=== PATIENT | female | born 1970 | race Caucasian/White ===

== ENCOUNTER 2019-08-09 11:43 | Emergency (ER) | payer BC ==
--- NOTE | 2019-08-09 11:58 | EDM.PDOC ---
ED HPI GENERAL MEDICAL PROBLEM - General Chief Complaint: Trauma Stated Complaint: FALL Time Seen by Provider: 08/09/19 11:46 Source of Information: Reports: Patient, Family History Limitations: Reports: No Limitations - History of Present Illness INITIAL COMMENTS - FREE TEXT/NARRATIVE: The patient presents with a headache and left elbow pain after a fall. The patient was at [employer] and she slipped on the ice and fell and hit her head, hurt her left elbow and has pain to the left buttock. She did hit her head. She had no LOC. She went to her truck with her and she passed out for about 5 minutes. She did wet herself but there was no seizure activity. She thinks she passed out because of the pain from the left elbow. She has a slight headache. Her left elbow hurts. She has mild pain to the left buttock. She has no chest pain, shortness of breath, abdominal pain, nausea or vomiting. Onset: Sudden Duration: Minutes: Location: Reports: Head, Upper Extremity, Left (elbow), Lower Extremity, Left ( buttock) Quality: Reports: Sharp Severity: Moderate Improves with: Reports: Immobilization Worsens with: Reports: Movement Context: Reports: Trauma (Slipped and fell on the ice) Associated Symptoms: Reports: Headaches. Denies: Chest Pain, Cough, Fever/ Chills, Nausea/Vomiting, Shortness of Breath Elbow Pain Score (Numeric/FACES): 7 - Related Data Allergies Allergy/AdvReac Type Severity Reaction Status Date / Time latex Allergy Anaphylactic Verified 08/09/19 11:52 Shock Home Meds: Home Meds Levothyroxine Sodium [Synthroid] 25 mcg PO ACBREAKFAST 08/09/19 [History] Sertraline [Zoloft] 50 mg PO BEDTIME 08/09/19 [History] Review of Systems - Review of Systems Review Of Systems: See Below Constitutional: Reports: No Symptoms Eyes: Reports: No Symptoms Ears: Reports: No Symptoms Nose: Reports: No Symptoms Mouth/Throat: Reports: No Symptoms Respiratory: Reports: No Symptoms Cardiovascular: Reports: Syncope. Denies: Chest Pain GI/Abdominal: Reports: No Symptoms Genitourinary: Reports: No Symptoms Musculoskeletal: Reports: Other (Left elbow pain and left buttock pain) Neurological: Reports: Headache ED EXAM, GENERAL - Physical Exam Exam: See Below Exam Limited By: No Limitations General Appearance: Alert, No Apparent Distress Ears: Normal External Exam Nose: Normal Inspection Head: Other (Mild tenderness to the occipital region) Neck: Normal Inspection, Supple, Non-Tender Respiratory/Chest: No Respiratory Distress, Lungs Clear, Normal Breath Sounds Cardiovascular: Regular Rate, Rhythm, No Edema, No Murmur GI/Abdominal: Soft, Non-Tender, No Organomegaly, No Mass Back Exam: Normal Inspection Extremities: Other (Pain upon palpation to the left elbow with no edema. Good sensation and pulses distally) Neurological: Alert, Oriented, No Motor/Sensory Deficits EKG INTERPRETATION EKG Date: 08/09/19 Time: 12:09 Rhythm: NSR Rate (Beats/Min): 86 [place]: Normal P-Wave: Present QRS: Normal ST-T: Normal QT: Normal Course - Vital Signs Last Recorded V/S: Last Vital Signs Temp 96.8 F 08/09/19 11:47 Pulse 97 08/09/19 11:47 Resp 20 08/09/19 11:47 BP 112/66 08/09/19 11:47 Pulse Ox 100 08/09/19 11:47 - Orders/Labs/Meds Orders: Active Orders 24 hr Category Date Time Status Cardiac Monitoring [RC] . DIRECTED Care 08/09/19 11:47 Active EKG Documentation Completion [RC] STAT Care 08/09/19 11:48 Active Elbow Min 3V Lt [CR] Stat Exams 08/09/19 11:49 Taken Labs: Laboratory Tests 08/09/19 08/09/19 Range/Units 12:15 12:15 WBC 9.41 (3.98-10.04) K/mm3 RBC 4.35 (3.98-5.22) M/mm3 Hgb 13.0 (11.2-15.7) gm/dl Hct 39.2 (34.1-44.9) % MCV 90.1 (79.4-94.8) fl MCH 29.9 (25.6-32.2) pg MCHC 33.2 (32.2-35.5) g/dl RDW Std Deviation 42.5 (36.4-46.3) fL Plt Count 286 (182-369) K/mm3 MPV 9.3 L (9.4-12.3) fl Neut % (Auto) 58.1 (34.0-71.1) % Lymph % (Auto) 34.4 (19.3-51.7) % [place] % (Auto) 7.0 (4.7-12.5) % Eos % (Auto) 0.2 L (0.7-5.8) Baso % (Auto) 0.2 (0.1-1.2) % Neut # (Auto) 5.46 (1.56-6.13) K/mm3 Lymph # (Auto) 3.24 (1.18-3.74) K/mm3 [place] # (Auto) 0.66 H (0.24-0.36) K/mm3 Eos # (Auto) 0.02 L (0.04-0.36) K/mm3 Baso # (Auto) 0.02 (0.01-0.08) K/mm3 Sodium 135 L (136-145) mEq/L Potassium 3.6 (3.5-5.1) mEq/L Chloride 101 (98-107) mEq/L Carbon Dioxide 22 (21-32) mEq/L Anion Gap 15.6 H (5-15) BUN 22 H (7-18) mg/dL Creatinine 0.9 (0.55-1.02) mg/dL Est Cr Clr Drug Dosing 64.61 mL/min Estimated GFR (MDRD) > 60 (>60) mL/min BUN/Creatinine Ratio 24.4 H (14-18) Glucose 93 (74-106) mg/dL Calcium 9.0 (8.5-10.1) mg/dL Total Bilirubin 0.5 (0.2-1.0) mg/dL AST 24 (15-37) U/L ALT 36 (14-59) U/L Alkaline Phosphatase 89 (46-116) U/L Troponin I < 0.017 (0.00-0.056) ng/mL Total Protein 7.7 (6.4-8.2) g/dl Albumin 3.6 (3.4-5.0) g/dl Globulin 4.1 gm/dL Albumin/Globulin Ratio 0.9 L (1-2) - Re-Assessments/Exams Free Text/Narrative Re-Assessment/Exam: 08/09/19 11:[address] of her head, EKG, labs, and an x-ray of her elbow. 08/09/19 13:08 Her EKG shows a NSR with no acute changes. Her x-ray of her elbow shows no fractures. Her CT looks good and her labs look good. I will discharge her home. Departure - Departure Time of Disposition: 13:10 Disposition: Home, Self-Care 01 Condition: Good Clinical Impression: Fall Qualifiers: Encounter type: initial encounter Qualified Code(s): W19.XXXA - Unspecified fall, initial encounter Head injury Qualifiers: Encounter type: initial encounter Qualified Code(s): S09.90XA - Unspecified injury of head, initial encounter Contusion of left elbow Qualifiers: Encounter type: initial encounter Qualified Code(s): S50.02XA - Contusion of left elbow, initial encounter Syncope Qualifiers: Syncope type: psychogenic syncope Qualified Code(s): F48.8 - Other specified nonpsychotic mental disorders - Discharge Information *PRESCRIPTION DRUG MONITORING PROGRAM REVIEWED*: Not Applicable *COPY OF PRESCRIPTION DRUG MONITORING REPORT IN PATIENT JOSE ANTONIO: Not Applicable Referrals: Carrie Rapp MD [Primary Care Provider] - 1 Week Forms: ED Department Discharge Additional Instructions: Take tylenol or motrin for any pain. Ice the areas that hurt for 15 minutes 3 times per day for 2 days. Please return if you are worse. - My Orders Last 24 Hours: My Active Orders 08/09/19 11:47 Cardiac Monitoring [RC] . DIRECTED 08/09/19 11:48 EKG Documentation Completion [RC] STAT 08/09/19 11:49 Elbow Min 3V Lt [CR] Stat - Assessment/Plan Last 24 Hours: My Active Orders 08/09/19 11:47 Cardiac Monitoring [RC] . DIRECTED 08/09/19 11:48 EKG Documentation Completion [RC] STAT 08/09/19 11:49 Elbow Min 3V Lt [CR] Stat
--- NOTE | 2019-08-09 12:20 | CT ---
Head CT Technique: Multiple axial sections through the brain were obtained. Intravenous contrast was not utilized. Comparison: No previous intracranial imaging. Findings: Ventricles along with basal cisterns and sulci over convexities are within normal limits for the patient's age. No abnormal parenchymal densities are seen. No evidence of intracranial hemorrhage. No midline shift or mass effect is seen. Bone window settings were reviewed. No acute calvarial abnormality is seen. Visualized mastoid sinuses and paranasal sinuses show nothing acute. Impression: 1. Nothing acute is appreciated on noncontrast head CT exam. Diagnostic code #1 This report was dictated in [place] Standard Time
--- NOTE | 2019-08-12 09:13 | CR ---
Left elbow: Four views of the left elbow were obtained. Comparison: No prior elbow study. No joint effusion is seen. Joint spaces are preserved. No joint effusion is seen. No fracture or other bony abnormality is seen. Impression: 1. No abnormality is appreciated on left elbow study. Diagnostic code #1 This report was dictated in [place] Standard Time
== END 2019-08-09 14:23 | disposition home or self-care (01) ==
LOC: JD.ED 11:43
DX: S09.90XA Unspecified injury of head, initial encounter (principal); S50.02XA Contusion of left elbow, initial encounter; F48.8 Other specified nonpsychotic mental disorders; Z91.040 Latex allergy status; W00.0XXA Fall on same level due to ice and snow, initial encounter; Y92.512 Supermarket, store or market as the place of occurrence of the external cause
CPT/HCPCS: 36415; 70450; 70450-26; 73080-26-LT; 73080-LT; 80053; 84484; 85025; 93005; 93010; 99283; 99284-25